=== PATIENT | female | born 1945 | race Caucasian/White ===

== ENCOUNTER 2023-03-29 09:14 | Inpatient (IN) | payer BC ==
[~2023-03-29] VITALS: Ht 167.6 cm; Wt 82.6 kg
--- NOTE | 2023-03-29 09:14 | NUR ---
BROUGHT BACK TO BED #8 AND TRIAGED, REPORT GIVEN TO DAVE
[2023-03-29 09:15] VITALS: BP_SYST 153
--- NOTE | 2023-03-29 09:25 | NUR ---
Pt BIB . C/O SOB. Onset of 4 years. RR 18. Even and unlabored. No accessory mucles noted being used. Pt denies NVD. Pt denies chest pain. Pt has extended medical HX. Pt noted with extended abdomen. Pt states no pain. Pt states extended abdomen for 6 years. Pt VSS. Pt slighly febrile. Pt skin dry and intact. PERRLA. AAOX4. Pt in bed with at bedside.
--- NOTE | 2023-03-29 09:30 | NUR ---
ER at bedside examining patient.
[2023-03-29 10:02] LABS: BASOPHILS # (AUTO) 0.1 K/uL (0.0-0.2); BASOPHILS % (AUTO) 1.7 % (0.0-2.0); EOSINOPHILS % (AUTO) 0.2 % (0.0-4.0); HEMATOCRIT 46.9 % (36-48); HEMOGLOBIN 15.4 g/dL (12.0-16.0); LYMPHOCYTES # (AUTO) 0.4 K/uL (1.0-5.5); LYMPHOCYTES % (AUTO) 6.7 % (20.5-51.5); MEAN CORPUSCULAR HEMOGLOBIN 30 pg (27-31); MEAN CORPUSCULAR HGB CONC 33 % (32-36); MEAN CORPUSCULAR VOLUME 92 fL (79.0-98.0); MONOCYTES # (AUTO) 0.4 K/uL (0.0-1.0); MONOCYTES % (AUTO) 7.4 % (1.7-9.3); NEUTROPHILS # (AUTO) 4.7 K/uL (1.8-7.7); PLATELET COUNT (AUTO) 189 K/uL (130-430); RED BLOOD CELL COUNT(AUTO) 5.11 MIL/uL (4.2-6.2); RED CELL DISTRIBUTION WIDTH 14.2 % (9.0-15.0); WHITE BLOOD COUNT (AUTO) 5.6 K/uL (4.8-10.8)
[2023-03-29 10:12] LABS: ALANINE AMINOTRANSFERASE 18 U/L (12-78); ANION GAP 8 (5-15); ASPARTATE AMINOTRANSFERASE 17 U/L (10-37); CALCIUM 9.4 mg/dL (8.4-11.0); CHLORIDE 101 mmol/L (98-107); CREATININE 0.73 mg/dL (0.55-1.30); GLUCOSE 114 mg/dL (70-99); UREA NITROGEN, BLOOD 14 mg/dL (8-21)
--- NOTE | 2023-03-29 12:19 | NUR ---
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 Cannot lie flat on back. Further pt cannot swallow pills. Pt surgical history of cervical vertebrae 1-5 fused.
--- NOTE | 2023-03-29 12:21 | NUR ---
Pt ambulates with steady gait and comforted assistance to the restroom. Urine specimen collected.
[2023-03-29] MEDS ORDERED: LORazepam 2 MG/ML VIAL IVP PRN (12:30)
[2023-03-29 12:55] LABS: INR 1.1 (0.8-1.2); PROTHROMBIN TIME 11.1 SECS (9.5-12.5)
--- NOTE | 2023-03-29 13:21 | NUR ---
# 20 gauge angiocath placed to LEFT WRIST. Use of asceptic technique. Opsite placed over site. Blood return noted. Blood for lab drawn from site. Flushed with 10 cc of normal saline. No evidence of infiltration noted. Patient tolerated well.
--- NOTE | 2023-03-29 13:32 | NUR ---
Admit bed requested Patient will be admitted to care of . Admitted to TELE unit. Diagnosis ASCITIES Inpatient (Yes or No) Y Observation (Yes or No) N Orientation concerns or request close to nursing station (Yes or No) N Covid Status N/A On vent or bipap N Isolation requirements N Needs a sitter N From Home (Yes or if No enter name of facility) Y Requires Dialysis (Yes or No) N Med Rec Completed (Yes of No) Y
[2023-03-29 13:37] LABS: INR 1.2 (0.8-1.2); PROTHROMBIN TIME 11.9 SECS (9.5-12.5)
[2023-03-29 13:50] VITALS: BP_SYST 155
--- NOTE | 2023-03-29 13:50 | NUR ---
Admission Note Received patient from ER with diagnosis of Ascites. Initial Plan of Care discussed-patient verbalized understanding. at bedside. Oriented to room, call light, pain management and safety.
--- NOTE | 2023-03-29 13:52 | NUR ---
CONSULTATION PAGED REASON FOR CONSULTATION: ASCITES WAS CONSULT CALLED? YY PERSON WHO WAS NOTIFIED:ALLIE CONSULTING PHYSICIAN: (DR.JERRICA CLOTHING EXAMINER) MAJOR DONOR COORDINATOR SPECIALTY: NEPHRO MAJOR DONOR COORDINATOR PHONE NUMBER: [phone] REQUESTING PHYSICIAN: DR[facility]
--- NOTE | 2023-03-29 13:57 | NUR ---
CONSULTATION PAGED REASON FOR CONSULTATION:ASC ITES WAS CONSULT CALLED? Y PERSON WHO WAS NOTIFIED:SARAH CONSULTING PHYSICIAN: GREGG SENA MARKETING PRODUCTION COORDINATOR SPECIALTY: GI MARKETING PRODUCTION COORDINATOR PHONE NUMBER: [phone] REQUESTING PHYSICIAN: LISA NGO
[2023-03-29] MEDS ORDERED: FUROSEMIDE 100 MG in D5W 90 ML IV ONE (14:00)
[2023-03-29] MEDS ORDERED: SPIRONOLACTONE 25 MG TABLET (ALDACTONE) PO ONE (14:00)
[2023-03-29] MEDS ORDERED: ALBUMIN HUMAN 25% 50 ML IV ONE (14:00)
--- NOTE | 2023-03-29 14:07 | NUR ---
Patient will be admitted to care of PHYSICIAN INTENSIVIST. Admitted to TELE unit. Will go to room 100A Belongings list completed. Complete and up to date summary report printed. SBAR report to be given at bedside with opportunity for questions.
--- NOTE | 2023-03-29 14:10 | NUR ---
US-Pelvic Received a call from Olivia from US stating that patient is unable to lay flat and wanted confirmation. I stated that no patient wants to remain upright at a 90 degree chico at all times. MD Ayala who ordered US, ECHO and UA was at bedside and made aware. educated patient regarding the risks of not getting procedures done due to not laying flat but patient stated she can not lay flat. stated that for now she can get UA collected for now.
--- NOTE | 2023-03-29 15:30 | NUR ---
ASSUMED CARE: RECEIVED REPORT FROM SEBASTIEN,SEEN PATIENT IN THE ROOM,SITTING ON A CHAIR. INITIAL ASSESSMENT RENDERED.
[2023-03-29 17:06] LABS: BILIRUBIN,URINE NEGATIVE (NEGATIVE); CLARITY/URINE CLEAR (CLEAR); COLOR,URINE YELLOW (YELLOW); GLUCOSE,URINE NEGATIVE (NEGATIVE); KETONES,URINE TRACE (NEGATIVE); LEUKOCYTE ESTERASE ,URINE NEGATIVE (NEGATIVE); NITRITE, URINE NEGATIVE (NEGATIVE); PROTEIN URINE NEGATIVE (NEGATIVE)
[2023-03-29 17:09] LABS: BLOOD, URINE TRACE (NEGATIVE)
[2023-03-29 17:59] LABS: BACTERIA,URINE RARE /HPF (None Seen); MUCUS,URINE None Seen /LPF (None Seen); WBC,URINE 0-3 /HPF (0-3)
--- NOTE | 2023-03-29 18:50 | NUR ---
END OF SHIFT: PATIENT SITING ON A CHAIR. STILL HAVING DINNER. IV LASIX DRIP AT 5CC/H AT LEFT WRIST,INTACT. CALL LIGHT WITH IN REACH. BED LOCKED AT LOWEST POSITION. NO DISTRESS.
--- NOTE | 2023-03-29 19:40 | NUR ---
INITIAL NOTES; pt. checked and sitting up in chair. pt. comfortable. VS checked. on room air. no shortness of breath. on Lasix IV drip @ 5 cc/hr. via left forearm. pt. abdomen pretty distended with DX Ascites. pt. able to ambulate to the restroom. call light within reach.
[2023-03-29 20:00] VITALS: BP_SYST 124
[2023-03-29 21:48] VITALS: BP_SYST 124
--- NOTE | 2023-03-29 22:00 | NUR ---
NOTES: pt. still up in chair. no complaints manifested. call ligth within reach. on silk screen processor and shows sinus rhythm.
[2023-03-29 23:27] LABS: URINE SODIUM, RANDOM 53 mmol/L (40-220)
[2023-03-30 00:09] VITALS: BP_SYST 138
--- NOTE | 2023-03-30 02:30 | NUR ---
NOTES: pt. been dozing on and off. unable to lay on the bed, prefer to sit up in chair. condition observed.
--- NOTE | 2023-03-30 05:00 | NUR ---
NOTES: pt. rechecked, comfortably remain sitting up in chair. IV Lasix drip still infusing. pt. been ambulating to the restroom.
--- NOTE | 2023-03-30 06:53 | NUR ---
CLOSING NOTES; pt. calm, sitting up in chair. IV Lasix almost done infusing. abdomen remain distended. for further care and assistance. call light within reach.
--- NOTE | 2023-03-30 07:10 | NUR ---
OPENING NOTES Patient sitting in chair resting due to uncomfortable ascites. A/O x 4, Greenlandic speaking. Patient breathing even and unlabored on room air. No pain, no distress, no SOB. Patient is on regular diet. Patient has Left wrist 20g SL. Call light within reach, all needs met, will continue with plan of care.
[2023-03-30 07:46] VITALS: BP_SYST 155
[2023-03-30 09:42] VITALS: BP_SYST 155
--- NOTE | 2023-03-30 11:05 | NUR ---
ROUNDING NOTE Patient awake and alert. Breathing labored, even on room air. Safety check in place. Continue to monitor.
[2023-03-30 11:26] VITALS: BP_SYST 142
--- NOTE | 2023-03-30 14:42 | NUR ---
DR REYES HERE GAVE ORDER TO CT abd tomorrow. gave order for iv 0.5 mg ivp x once before ct scan tomorrow 03/31/23
--- NOTE | 2023-03-30 14:45 | NUR ---
HIGH ALERT NOTE: Called Dr. wade back at identified within the medical roster to verify physician authenticity.
--- NOTE | 2023-03-30 15:03 | NUR ---
ULTRASOUND Received a call from copier technician Wendy, stating that thoracentesis will be rescheduled until tomorrow morning.
--- NOTE | 2023-03-30 15:45 | NUR ---
CONSULTATION PAGED REASON FOR CONSULTATION:TACHYCARDIA WAS CONSULT CALLED?Y PERSON WHO WAS NOTIFIED:HCELSI CONSULTING PHYSICIAN:SHIRIN TORRES INDUSTRIAL SWEEPER CLEANER SPECIALTY:CARDIO INDUSTRIAL SWEEPER CLEANER PHONE NUMBER:[phone] REQUESTING PHYSICIAN:TARIQ MALLOY
--- NOTE | 2023-03-30 15:47 | NUR ---
CARDIO CONSULT WITH DR CHRISTIAN WAS CALLED, RE: TACHYCARDIA.
--- NOTE | 2023-03-30 16:00 | NUR ---
ROUNDING NOTE Patient awake and alert. Breathing labored, even on room air. Safety check in place. Continue to monitor.
[2023-03-30 16:13] VITALS: BP_SYST 132
--- NOTE | 2023-03-30 18:39 | NUR ---
CLOSING NOTES Patient resting, sitting upright on chair. A/O x 4, [place]oth[place] speaking. Patient breathing even and unlabored on room air. No pain, no distress, no SOB. Patient feeling discomfort from enlarge abdomen. Patient is on regular diet. Call light within reach, all needs met, will endorse to draw off worker nurse.
--- NOTE | 2023-03-30 19:35 | NUR ---
ROUNDS PATIENT AWAKE, SITTING IN THE CHAIR, VITALS STABLE,NO PAIN AT THIS TIME. ASSESSMENT DONE AND DOCUMENTED. SEE FLOWSHEET. NEEDS ATTENDED TO. CALL LIGHT PLACED WITHIN REACH.
[2023-03-30 20:00] VITALS: BP_SYST 118
[2023-03-31 01:06] LABS: AFP, TUMOR MARKER <1.8 ng/mL (0.0-9.2); CANCER AG, 125 11.7 U/mL (0.0-38.1)
--- NOTE | 2023-03-31 02:33 | NUR ---
ROUNDS PATIENT AWAKE, AMBULATES TO THE BATHROOM, NO COMPLAINTS AT THIS TIME. WILL CONTINUE TO MONITOR.
[2023-03-31 05:10] LABS: HEPATITIS A AB, IgM Negative (Negative); HEPATITIS B CORE AB, IgM Negative (Negative); HEPATITIS B SURFACE AG Negative (Negative)
[2023-03-31 05:27] LABS: BASOPHILS % (AUTO) 0.7 % (0.0-2.0); EOSINOPHILS # (AUTO) 0.1 K/uL (0.0-0.4); EOSINOPHILS % (AUTO) 1.5 % (0.0-4.0); HEMOGLOBIN 15.5 g/dL (12.0-16.0); LYMPHOCYTES # (AUTO) 0.8 K/uL (1.0-5.5); LYMPHOCYTES % (AUTO) 13.4 % (20.5-51.5); MEAN CORPUSCULAR HEMOGLOBIN 30 pg (27-31); MEAN CORPUSCULAR HGB CONC 33 % (32-36); MEAN CORPUSCULAR VOLUME 92 fL (79.0-98.0); MONOCYTES # (AUTO) 0.6 K/uL (0.0-1.0); MONOCYTES % (AUTO) 11.3 % (1.7-9.3); NEUTROPHILS # (AUTO) 4.2 K/uL (1.8-7.7); NEUTROPHILS % (AUTO) 73.1 % (40.0-70.0); PLATELET COUNT (AUTO) 176 K/uL (130-430); RED BLOOD CELL COUNT(AUTO) 5.11 MIL/uL (4.2-6.2); RED CELL DISTRIBUTION WIDTH 14.4 % (9.0-15.0); WHITE BLOOD COUNT (AUTO) 5.7 K/uL (4.8-10.8)
[2023-03-31 05:45] VITALS: BP_SYST 128
[2023-03-31 05:51] LABS: ANION GAP 4 (5-15); CALCIUM 9.3 mg/dL (8.4-11.0); CHLORIDE 96 mmol/L (98-107); GLUCOSE 108 mg/dL (70-99); UREA NITROGEN, BLOOD 27 mg/dL (8-21)
[2023-03-31 07:38] VITALS: BP_SYST 115
[2023-03-31 08:00] VITALS: BP_SYST 115
[2023-03-31 09:16] VITALS: BP_SYST 115
[2023-03-31] MEDS ORDERED: ALBUMIN HUMAN 25% 50 ML IV ONE (10:30)
[2023-03-31 11:30] VITALS: BP_SYST 116
[2023-03-31] MEDS ORDERED: LORazepam 2 MG/ML VIAL IVP ONE (12:00)
[2023-03-31 12:34] LABS: APPEARANCE,SPUN,BODY FLUID CLEAR (CLEAR); BF APPEARANCE UNSPUN CLEAR (CLEAR); BODY FLUID COLOR YELLOW (LT YELLOW); BODY FLUID SOURCE/ TYPE ASCITES; BODY FLUID TOTAL VOLUME 9000 mL; MONOCYTES,BODY FLUID 96 %; NEUTROPHIL, BODY FLUID 4 %; RBC, BODY FLUID 3 /uL; SOURCE/TYPE ,BODY FLUID PARACENTESIS; WBC, BODY FLUID 12 /uL
[2023-03-31 13:29] VITALS: BP_SYST 127
--- NOTE | 2023-03-31 14:46 | NUR ---
Pt had 9L removed in paracenthesis. CT of abdomen finished. Discharge instructions given to patient. [facility] will set up patient's paracentesis appointment for one week and f/u with pt at home. RFA PIV removed and intact. No prescriptions. Pt voiding and ambulatory. Will discharge pt to lobby by wheelchair and going home with by private transportation.
[2023-03-31 18:15] LABS: BODY FLUID GLUCOSE 57 mg/dL; BODY FLUID TOTAL PROTEIN 3.3 g/dL
[2023-04-01 07:06] LABS: FERRITIN 129 ng/mL (15-150)
[2023-04-01 08:06] LABS: ALPHA-1-ANTITRYPSIN, S 167 mg/dL (101-187)
[2023-04-01 14:06] LABS: ANTI NUCLEAR AB WITH REFLEX Negative (Negative)
[2023-04-03 08:54] LABS: HEPATITIS C VIRUS AB Negative <0.8 s/co (0.0-0.7)
[2023-04-03 11:07] LABS: ANTI-SMOOTH MUSCLE AB 5 Units (0-19)
== END 2023-03-31 15:00 | disposition home health service (06) | DRG 760 ==
LOC: SED 09:14 → STU 12:58
PROVIDERS: ADMIT Specialist; ATTEND Specialist
PROC: 0W9G3ZZ Drainage of Peritoneal Cavity, Percutaneous Approach (ICD-10-PCS; principal; 2023-03-31)
DX: N94.89 Other specified conditions associated with female genital organs and menstrual cycle (principal); R18.8 Other ascites; Z68.29 Body mass index [BMI] 29.0-29.9, adult; R35.89 Other polyuria; E88.09 Other disorders of plasma-protein metabolism, not elsewhere classified; I10 Essential (primary) hypertension; Z88.8 Allergy status to other drugs, medicaments and biological substances; Z88.6 Allergy status to analgesic agent; Z91.018 Allergy to other foods; Z79.899 Other long term (current) drug therapy
CPT/HCPCS: 36415; 49083; 71045; 76376; 76700-TC; 76856-TC; 80048; 80053; 80074; 81000; 82042; 82103; 82105; 82140; 82390; 82570; 82728; 82947; 83516; 83605; 83880; 84157; 84302; 84484; 85025; 85610-TC; 85730-TC; 86038; 86304; 86803; 87040; 87070-TC; 88108; 88305; 89051-TC; 89060-TC; 93005; 93306; 99285; G0378; J1940; J2060; J7050; J7060; P9046

== ENCOUNTER 2023-05-24 16:29 | Emergency (ER) | payer BC ==
[~2023-05-24] VITALS: Ht 165.1 cm; Wt 68.9 kg
[2023-05-24 16:35] VITALS: BP_SYST 133; PULSE 101; RESP 18; TEMP 97.9; O2SAT 97
[2023-05-24 18:22] LABS: BASOPHILS % (AUTO) 0.6 % (0.0-2.0); EOSINOPHILS % (AUTO) 0.5 % (0.0-4.0); HEMATOCRIT 46.2 % (36-48); HEMOGLOBIN 15.5 g/dL (12.0-16.0); LYMPHOCYTES # (AUTO) 0.7 K/uL (1.0-5.5); LYMPHOCYTES % (AUTO) 8.6 % (20.5-51.5); MEAN CORPUSCULAR HEMOGLOBIN 31 pg (27-31); MEAN CORPUSCULAR HGB CONC 34 % (32-36); MEAN CORPUSCULAR VOLUME 92 fL (79.0-98.0); MONOCYTES # (AUTO) 0.6 K/uL (0.0-1.0); MONOCYTES % (AUTO) 7.6 % (1.7-9.3); NEUTROPHILS # (AUTO) 6.7 K/uL (1.8-7.7); NEUTROPHILS % (AUTO) 82.7 % (40.0-70.0); PLATELET COUNT (AUTO) 196 K/uL (130-430); RED BLOOD CELL COUNT(AUTO) 5.02 MIL/uL (4.2-6.2); RED CELL DISTRIBUTION WIDTH 13.7 % (9.0-15.0); WHITE BLOOD COUNT (AUTO) 8.1 K/uL (4.8-10.8)
[2023-05-24 18:30] LABS: ANION GAP 6 (5-15); CALCIUM 9.8 mg/dL (8.4-11.0); CHLORIDE 102 mmol/L (98-107); CREATININE 0.93 mg/dL (0.55-1.30); GLUCOSE 106 mg/dL (74-106); UREA NITROGEN, BLOOD 12 mg/dL (8-21)
[2023-05-24 18:34] LABS: ALANINE AMINOTRANSFERASE 25 U/L (12-78); ALBUMIN 3.8 g/dL (3.4-4.8); ASPARTATE AMINOTRANSFERASE 18 U/L (10-37); TOTAL BILIRUBIN 1.2 mg/dL (0.0-1.0)
[2023-05-24] MEDS ORDERED: ALBUTEROL SULFATE 0.083% 2.5 MG/3 ML VIAL.NEB INH ONE (20:00)
[2023-05-24] MEDS ORDERED: MIDAZOLAM HCL 5 MG/5 ML VIAL IVP ONE (21:30)
[2023-05-24] MEDS ORDERED: RACEPINEPHRINE HCL 0.5 ML VIAL.NEB INH ONE (21:30)
[2023-05-24] MEDS ORDERED: methylPREDNISolone SOD SUCC/PF 62.5 MG/ML VIAL IVP ONE (21:30)
[2023-05-24] MEDS ORDERED: PRED20TA PO (22:55)
[2023-05-24 23:20] VITALS: BP_SYST 145; PULSE 89; RESP 30; TEMP 98.1; O2SAT 99
== END 2023-05-24 23:20 | disposition home or self-care (01) ==
LOC: SED 16:29
DX: R06.02 Shortness of breath (principal); Z88.1 Allergy status to other antibiotic agents; Z88.6 Allergy status to analgesic agent; Z91.011 Allergy to milk products; Z79.899 Other long term (current) drug therapy
CPT/HCPCS: 80053; 83880; 85025; 84484; 36415; 93005; 71045; 94644; 94640; 99291; 96374; 96375; J2930; J2250; J7613

== ENCOUNTER 2024-09-01 01:19 | Emergency (ER) | payer BC ==
[~2024-09-01] VITALS: Ht 165.1 cm; Wt 63.5 kg
[~2024-09-01 01:19] MED LIST: PRED20TA PO
[2024-09-01 01:30] VITALS: BP_SYST 140; PULSE 95; RESP 20; TEMP 97.6; O2SAT 99
[2024-09-01 03:59] LABS: BASOPHILS % (AUTO) 0.3 % (0.0-2.0); EOSINOPHILS % (AUTO) 0.3 % (0.0-4.0); HEMATOCRIT 44.3 % (36-48); HEMOGLOBIN 14.9 g/dL (12.0-16.0); LYMPHOCYTES # (AUTO) 0.5 K/uL (1.0-5.5); LYMPHOCYTES % (AUTO) 3.1 % (20.5-51.5); MEAN CORPUSCULAR HEMOGLOBIN 32 pg (27-31); MEAN CORPUSCULAR HGB CONC 34 % (32-36); MEAN CORPUSCULAR VOLUME 95 fL (79.0-98.0); MONOCYTES # (AUTO) 0.8 K/uL (0.0-1.0); MONOCYTES % (AUTO) 5.4 % (1.7-9.3); NEUTROPHILS # (AUTO) 13.8 K/uL (1.8-7.7); NEUTROPHILS % (AUTO) 90.9 % (40.0-70.0); PLATELET COUNT (AUTO) 238 K/uL (130-430); RED BLOOD CELL COUNT(AUTO) 4.68 MIL/uL (4.2-6.2); RED CELL DISTRIBUTION WIDTH 12.7 % (9.0-15.0); WHITE BLOOD COUNT (AUTO) 15.2 K/uL (4.8-10.8)
[2024-09-01 04:20] LABS: ALANINE AMINOTRANSFERASE 19 U/L (12-78); ALBUMIN 3.6 g/dL (3.4-4.8); ANION GAP 7 (5-15); ASPARTATE AMINOTRANSFERASE 17 U/L (10-37); CALCIUM 9.4 mg/dL (8.4-11.0); CARBON DIOXIDE 32 mmol/L (23-29); CHLORIDE 101 mmol/L (98-107); CREATININE 0.98 mg/dL (0.55-1.30); GLUCOSE 126 mg/dL (74-106); POTASSIUM 3.5 mmol/L (3.5-5.1); SODIUM SERUM 140 mmol/L (136-145); TOTAL BILIRUBIN 0.5 mg/dL (0.0-1.0); TOTAL PROTEIN, SERUM 7.4 g/dL (6.4-8.3); UREA NITROGEN, BLOOD 19 mg/dL (8-21)
[2024-09-01 06:17] VITALS: BP_SYST 139; PULSE 99; RESP 16; TEMP 98.2; O2SAT 96
== END 2024-09-01 06:17 | disposition short-term general hospital (02) ==
LOC: SED 01:19
DX: S12.9XXA Fracture of neck, unspecified, initial encounter (principal); S01.01XA Laceration without foreign body of scalp, initial encounter; Z20.822 Contact with and (suspected) exposure to COVID-19; Z79.52 Long term (current) use of systemic steroids; Z88.1 Allergy status to other antibiotic agents; Z79.899 Other long term (current) drug therapy; W22.8XXA Striking against or struck by other objects, initial encounter; Y93.E1 Activity, personal bathing and showering; Y92.89 Other specified places as the place of occurrence of the external cause; Y99.8 Other external cause status
CPT/HCPCS: 36415; 70450-TC; 72125-TC; 80053; 85025; 99291